=== PATIENT | female | born 1940 | race Caucasian/White ===

== ENCOUNTER 2017-08-19 11:28 | Inpatient (IN) | payer MEDICARE, OTHER ==
[~2017-08-19] VITALS: Ht 157.5 cm; Wt 58.3 kg
[2017-08-19] MEDS ORDERED: ALBUTEROL SULFATE 5 MG/ML 20 ML NEB SOLN [BULK] NEB ONE (11:45)
[2017-08-19] MEDS ORDERED: IPRATROPIUM BROMIDE 0.5 MG/2.5 ML NEB SOLUTION NEB ONE (11:45)
[2017-08-19] MEDS ORDERED: 0.9% SODIUM CHLORIDE 15 ML NEB SOLUTION NEB ONE (11:49)
[2017-08-19] MEDS ORDERED: IPRA3AMP4 IH (11:55)
[2017-08-19] MEDS ORDERED: TRAM50TA4 PO (11:55)
[2017-08-19] MEDS ORDERED: PANT40TA25 PO (11:55)
[2017-08-19] MEDS ORDERED: BUME1TAB17 PO (11:55)
[2017-08-19] MEDS ORDERED: ADV250 IH (11:55)
[2017-08-19] MEDS ORDERED: SILD20TA PO (11:55)
[2017-08-19] MEDS ORDERED: DONE10TA8 PO (11:55)
[2017-08-19] MEDS ORDERED: SULF1TAB41 PO (11:55)
[2017-08-19] MEDS ORDERED: DILT300C33 PO (11:55)
[2017-08-19] MEDS ORDERED: ATOR20TA86 PO (11:55)
[2017-08-19] MEDS ORDERED: ALBU8.5H8 IH (11:55)
[2017-08-19] MEDS ORDERED: APIX5TAB PO (11:55)
[2017-08-19] MEDS ORDERED: MethylPREDNISolone SOD SUCC 125 MG/2 ML VIAL IVP ONE (12:00)
[2017-08-19 12:43] LABS: BASOPHILS % (AUTO) 0.3 % (0.0-2.0); EOSINOPHILS % (AUTO) 1.9 % (1.0-6.0); HEMATOCRIT 30.3 % (36-46); HEMOGLOBIN 10.3 g/dL (12.0-16.0); LYMPHOCYTES # (AUTO) 1.1 K/uL (1.0-4.8); LYMPHOCYTES % (AUTO) 15.4 % (22.0-44.0); MEAN CORPUSCULAR HEMOGLOBIN 30.8 pg (26.0-34.0); MEAN CORPUSCULAR VOLUME 91 fL (80-100); MONOCYTES # (AUTO) 0.8 K/uL (0.1-1.0); MONOCYTES % (AUTO) 12.3 % (2.0-9.0); NEUTROPHILS # (AUTO) 4.8 K/uL (1.8-7.7); NEUTROPHILS % (AUTO) 70.1 % (40.0-70.0); PLATELET COUNT (AUTO) 178 K/uL (150-450); RED BLOOD CELL COUNT(AUTO) 3.34 MIL/uL (4.00-5.20); RED CELL DISTRIBUTION WIDTH 16.8 % (11.5-14.5)
[2017-08-19] MEDS ORDERED: PIPERACILLIN/TAZO 3.375 GM/D5W 50 ML IV ONE (12:45)
[2017-08-19] MEDS ORDERED: LEVOFLOXACIN 500 MG/D5% WATER 100 ML IV ONE (12:45)
[2017-08-19 12:54] LABS: ANION GAP 9 mmol/L (8-16); CALCIUM, TOTAL 9.5 mg/dL (8.8-10.5); CARBON DIOXIDE 23 mmol/L (22-29); CHLORIDE 100 mmol/L (98-107); CREATININE 1.31 mg/dL (0.60-1.30); GLOMERULAR FILTR. RATE CALC 40 mL/min (>60); GLUCOSE,RANDOM 116 mg/dL (70-110); POTASSIUM 4.7 mmol/L (3.5-5.1); SODIUM SERUM 132 mmol/L (136-145); UREA NITROGEN, BLOOD 25 mg/dL (7-18)
[2017-08-19 13:05] LABS: B-TYPE NATRIURETIC PEPTIDE 798 pg/mL (0-100)
[2017-08-19 13:19] LABS: ALANINE AMINOTRANSFERASE 15 U/L (12-78); ALBUMIN 3.2 g/dL (3.4-5.0); ALKALINE PHOSPHATASE 93 U/L (46-116); ASPARTATE AMINOTRANSFERASE 32 U/L (15-37); BILIRUBIN,TOTAL 0.8 mg/dL (0.1-1.0); CREATINE KINASE MB 1.9 ng/mL (0-5); CREATINE KINASE, TOTAL 78 U/L (26-192); TOTAL PROTEIN, SERUM 7.3 g/dL (6.4-8.2)
[2017-08-19] MEDS ORDERED: FUROSEMIDE 40 MG/4 ML VIAL IVP ONE (13:30)
[2017-08-19] MEDS ORDERED: ONDANSETRON HCL 4 MG/2 ML VIAL IVP PRN ×2 (13:45→15:45)
[2017-08-19] MEDS ORDERED: ACETAMINOPHEN 325 MG TABLET PO PRN (13:45)
[2017-08-19] MEDS ORDERED: ALBUTEROL SULFATE 2.5 MG/0.5 ML NEB SOLUTION NEB SCH (15:00)
[2017-08-19] MEDS ORDERED: IPRATROPIUM BROMIDE 0.5 MG/2.5 ML NEB SOLUTION NEB SCH (15:00)
[2017-08-19 15:17] VITALS: BP 109/57
[2017-08-19] MEDS ORDERED: IPRATROPIUM BROMIDE 0.5 MG/2.5 ML NEB SOLUTION NEB PRN (15:45)
[2017-08-19] MEDS ORDERED: ZOLPIDEM TARTRATE 5 MG TABLET PO PRN (15:45)
[2017-08-19] MEDS ORDERED: BUMETANIDE 0.25 MG/ML 4 ML VIAL IVP ONE (15:45)
[2017-08-19] MEDS ORDERED: BISACODYL 10 MG RECTAL RECTAL SUPPOSITORY PR PRN (15:45)
[2017-08-19] MEDS ORDERED: TraMADol HCL 50 MG TABLET PO PRN (15:45)
[2017-08-19] MEDS ORDERED: ALBUTEROL SULFATE 2.5 MG/0.5 ML NEB SOLUTION NEB PRN (15:45)
[2017-08-19] MEDS ORDERED: MORPHINE SULFATE 4 MG/ML SYRINGE IVP PRN (15:45)
[2017-08-19] MEDS ORDERED: OxyCODONE HCL/ACETAMINOPHEN 5-325 MG TABLET PO PRN (15:45)
[2017-08-19] MEDS ORDERED: SILDENAFIL CITRATE 20 MG TABLET PO SCH (16:00)
[2017-08-19] MEDS ORDERED: HEPARIN SODIUM,PORCINE 5,000 UNITS/ML VIAL SQ SCH (16:00)
[2017-08-19] MEDS: MethylPREDNISolone SOD SUCC 125 MG/2 ML VIAL IVP SCH (17:52)
[2017-08-19] MEDS: ACETAMINOPHEN 325 MG TABLET PO PRN (17:55)
[2017-08-19] MEDS: ALBUTEROL SULFATE 2.5 MG/0.5 ML NEB SOLUTION NEB SCH ×2 (19:18→23:10)
[2017-08-19] MEDS: IPRATROPIUM BROMIDE 0.5 MG/2.5 ML NEB SOLUTION NEB SCH ×2 (19:19→23:10)
[2017-08-19 19:30] VITALS: BP 117/66
[2017-08-19] MEDS: DOCUSATE SODIUM 100 MG CAPSULE PO SCH (19:53)
[2017-08-19] MEDS: APIXABAN 5 MG TABLET PO SCH (19:56)
[2017-08-19] MEDS: BUMETANIDE 0.25 MG/ML 4 ML VIAL IVP SCH (19:56)
[2017-08-20] VITALS (7 sets, daily range): BP systolic 106–127; BP diastolic 52–64
[2017-08-20] MEDS: MethylPREDNISolone SOD SUCC 125 MG/2 ML VIAL IVP SCH ×5 (00:39→23:41)
[2017-08-20] MEDS: ACETAMINOPHEN 325 MG TABLET PO PRN ×3 (00:42→23:41)
[2017-08-20] MEDS: IPRATROPIUM BROMIDE 0.5 MG/2.5 ML NEB SOLUTION NEB SCH ×6 (03:12→22:59)
[2017-08-20] MEDS: ALBUTEROL SULFATE 2.5 MG/0.5 ML NEB SOLUTION NEB SCH ×6 (03:12→22:58)
[2017-08-20] MEDS ORDERED: MISC MED-CONVERTED FROM AMBULATORY (Ipratropium/Albuterol Sulfate (Duoneb 2.5-0.5 Mg/3 Ml IH SCH (09:00)
[2017-08-20] MEDS: BUMETANIDE 0.25 MG/ML 4 ML VIAL IVP SCH ×2 (09:05→20:27)
[2017-08-20] MEDS: DOCUSATE SODIUM 100 MG CAPSULE PO SCH ×2 (09:07→20:27)
[2017-08-20] MEDS: PANTOPRAZOLE SODIUM 40 MG DR TABLET PO SCH (09:07)
[2017-08-20] MEDS: DILTIAZEM HCL CD 180 MG ER CAPSULE PO SCH (09:07)
[2017-08-20] MEDS: DONEPEZIL HCL 10 MG TABLET PO SCH (09:07)
[2017-08-20] MEDS: APIXABAN 5 MG TABLET PO SCH ×2 (09:07→20:26)
[2017-08-20] MEDS: ATORVASTATIN CALCIUM 20 MG TABLET PO SCH (09:07)
[2017-08-20] MEDS: SILDENAFIL CITRATE 20 MG TABLET PO SCH ×3 (09:22→20:26)
[2017-08-20] MEDS: MAGNESIUM HYDROXIDE SUSPENSION 30 ML UDCUP PO PRN (14:52)
[2017-08-21] MEDS: ALBUTEROL SULFATE 2.5 MG/0.5 ML NEB SOLUTION NEB SCH ×6 (02:39→22:31)
[2017-08-21] MEDS: IPRATROPIUM BROMIDE 0.5 MG/2.5 ML NEB SOLUTION NEB SCH ×6 (02:39→22:31)
[2017-08-21 05:13] VITALS: BP 96/53
[2017-08-21] MEDS: MethylPREDNISolone SOD SUCC 125 MG/2 ML VIAL IVP SCH ×2 (06:11→17:18)
[2017-08-21 08:32] VITALS: BP 112/61
[2017-08-21] MEDS: DOCUSATE SODIUM 100 MG CAPSULE PO SCH ×2 (09:00→20:54)
[2017-08-21] MEDS: SILDENAFIL CITRATE 20 MG TABLET PO SCH ×3 (09:34→20:55)
[2017-08-21] MEDS: DILTIAZEM HCL CD 180 MG ER CAPSULE PO SCH (09:34)
[2017-08-21] MEDS: MAGNESIUM HYDROXIDE SUSPENSION 30 ML UDCUP PO PRN (09:35)
[2017-08-21] MEDS: BUMETANIDE 0.25 MG/ML 4 ML VIAL IVP SCH ×2 (09:35→20:55)
[2017-08-21] MEDS: ATORVASTATIN CALCIUM 20 MG TABLET PO SCH (09:35)
[2017-08-21] MEDS: APIXABAN 5 MG TABLET PO SCH ×2 (09:35→20:55)
[2017-08-21] MEDS: DONEPEZIL HCL 10 MG TABLET PO SCH (09:35)
[2017-08-21] MEDS: PANTOPRAZOLE SODIUM 40 MG DR TABLET PO SCH (09:35)
[2017-08-21 12:24] VITALS: BP 99/57
[2017-08-21] MEDS ORDERED: DILT180C63 PO (12:53)
[2017-08-21] MEDS ORDERED: SULF1TAB42 PO (12:53)
[2017-08-21 13:22] LABS: BASOPHILS % (AUTO) 0.1 % (0.0-2.0); EOSINOPHILS % (AUTO) 0 % (1.0-6.0); HEMATOCRIT 29.6 % (36-46); HEMOGLOBIN 9.9 g/dL (12.0-16.0); LYMPHOCYTES # (AUTO) 0.6 K/uL (1.0-4.8); LYMPHOCYTES % (AUTO) 5.9 % (22.0-44.0); MEAN CORPUSCULAR HEMOGLOBIN 30.5 pg (26.0-34.0); MEAN CORPUSCULAR HGB CONC 33.4 G/dL (31.0-37.0); MEAN CORPUSCULAR VOLUME 91 fL (80-100); MONOCYTES # (AUTO) 0.3 K/uL (0.1-1.0); NEUTROPHILS # (AUTO) 8.9 K/uL (1.8-7.7); PLATELET COUNT (AUTO) 229 K/uL (150-450); RED BLOOD CELL COUNT(AUTO) 3.24 MIL/uL (4.00-5.20); RED CELL DISTRIBUTION WIDTH 16.9 % (11.5-14.5)
[2017-08-21 13:28] LABS: CALCIUM, TOTAL 9.5 mg/dL (8.8-10.5); CREATININE 2.43 mg/dL (0.60-1.30); POTASSIUM 5.1 mmol/L (3.5-5.1)
[2017-08-21 13:34] LABS: ALBUMIN 3.4 g/dL (3.4-5.0); BILIRUBIN,TOTAL 0.7 mg/dL (0.1-1.0); TOTAL PROTEIN, SERUM 7.4 g/dL (6.4-8.2)
[2017-08-21 13:35] LABS: PLATELET MORPHOLOGY COMMENT GIANT PLTS PRESENT
[2017-08-21 15:49] VITALS: BP 104/52
[2017-08-21 20:13] VITALS: BP 107/60
[2017-08-21] MEDS: ACETAMINOPHEN 325 MG TABLET PO PRN (22:52)
[2017-08-21 23:25] VITALS: BP 105/58
[2017-08-22] MEDS: MethylPREDNISolone SOD SUCC 125 MG/2 ML VIAL IVP SCH ×4 (00:11→17:26)
[2017-08-22] MEDS: ALBUTEROL SULFATE 2.5 MG/0.5 ML NEB SOLUTION NEB SCH ×4 (02:24→14:41)
[2017-08-22] MEDS: IPRATROPIUM BROMIDE 0.5 MG/2.5 ML NEB SOLUTION NEB SCH ×4 (02:24→14:41)
[2017-08-22 04:38] VITALS: BP 97/51
[2017-08-22 07:05] VITALS: BP 95/54
[2017-08-22] MEDS: DOCUSATE SODIUM 100 MG CAPSULE PO SCH (09:00)
[2017-08-22] MEDS: PANTOPRAZOLE SODIUM 40 MG DR TABLET PO SCH (09:21)
[2017-08-22] MEDS: DILTIAZEM HCL CD 180 MG ER CAPSULE PO SCH (09:23)
[2017-08-22] MEDS: APIXABAN 5 MG TABLET PO SCH (09:24)
[2017-08-22] MEDS: SILDENAFIL CITRATE 20 MG TABLET PO SCH ×2 (09:24→17:25)
[2017-08-22] MEDS: DONEPEZIL HCL 10 MG TABLET PO SCH (09:24)
[2017-08-22] MEDS: ATORVASTATIN CALCIUM 20 MG TABLET PO SCH (09:24)
[2017-08-22] MEDS: BUMETANIDE 0.25 MG/ML 4 ML VIAL IVP SCH (09:25)
[2017-08-22 11:32] VITALS: BP 107/59
[2017-08-22 16:23] VITALS: BP 100/54
[2017-08-22] MEDS: ACETAMINOPHEN 325 MG TABLET PO PRN (17:25)
[2017-08-22 17:26] LABS: BASOPHILS % (AUTO) 0.1 % (0.0-2.0); EOSINOPHILS % (AUTO) 0 % (1.0-6.0); HEMATOCRIT 30.9 % (36-46); HEMOGLOBIN 10.2 g/dL (12.0-16.0); LYMPHOCYTES # (AUTO) 0.2 K/uL (1.0-4.8); LYMPHOCYTES % (AUTO) 2.4 % (22.0-44.0); MEAN CORPUSCULAR HGB CONC 33.1 G/dL (31.0-37.0); MEAN CORPUSCULAR VOLUME 91 fL (80-100); MONOCYTES # (AUTO) 0.2 K/uL (0.1-1.0); MONOCYTES % (AUTO) 2.8 % (2.0-9.0); NEUTROPHILS # (AUTO) 7.1 K/uL (1.8-7.7); NEUTROPHILS % (AUTO) 94.7 % (40.0-70.0); PLATELET COUNT (AUTO) 241 K/uL (150-450); RED BLOOD CELL COUNT(AUTO) 3.41 MIL/uL (4.00-5.20); RED CELL DISTRIBUTION WIDTH 16.8 % (11.5-14.5)
[2017-08-22 17:35] LABS: CALCIUM, TOTAL 9.4 mg/dL (8.8-10.5); CREATININE 2.43 mg/dL (0.60-1.30)
[2017-08-22 17:41] LABS: ALBUMIN 3.5 g/dL (3.4-5.0); BILIRUBIN,TOTAL 0.8 mg/dL (0.1-1.0); TOTAL PROTEIN, SERUM 7.5 g/dL (6.4-8.2)
[2017-08-22] MEDS ORDERED: PredniSONE 20 MG TABLET PO ONE (17:45)
== END 2017-08-22 18:45 | DRG 189 ==
LOC: EMS 11:30 → 5N 13:41
PROVIDERS: ADMIT Hospitalist; ATTEND Hospitalist
DX: J96.20 Acute and chronic respiratory failure, unspecified whether with hypoxia or hypercapnia (principal); J18.9 Pneumonia, unspecified organism; J45.901 Unspecified asthma with (acute) exacerbation; J44.1 Chronic obstructive pulmonary disease with (acute) exacerbation; I13.0 Hypertensive heart and chronic kidney disease with heart failure and stage 1 through stage 4 chronic kidney disease, or unspecified chronic kidney disease; J44.0 Chronic obstructive pulmonary disease with (acute) lower respiratory infection; I48.91 Unspecified atrial fibrillation; I50.9 Heart failure, unspecified; I25.10 Atherosclerotic heart disease of native coronary artery without angina pectoris; D63.1 Anemia in chronic kidney disease; E78.5 Hyperlipidemia, unspecified; F03.90 Unspecified dementia, unspecified severity, without behavioral disturbance, psychotic disturbance, mood disturbance, and anxiety; I27.20 Pulmonary hypertension, unspecified; N18.3 Chronic kidney disease, stage 3 (moderate); Z91.041 Radiographic dye allergy status; Z79.01 Long term (current) use of anticoagulants; Z79.899 Other long term (current) drug therapy; Z86.73 Personal history of transient ischemic attack (TIA), and cerebral infarction without residual deficits
CPT/HCPCS: 87040; 87081; 93005; 94640; 94644; 96374; 99291; J1940; J1956; J2543; J2930; J3490

== ENCOUNTER 2018-06-20 10:31 | Inpatient (IN) | payer MEDICARE, OTHER ==
[~2018-06-20] VITALS: Ht 165.1 cm; Wt 57.6 kg
[~2018-06-20 10:31] MED LIST: ADV250 IH; ALBU8.5H8 IH; APIX5TAB PO; ATOR20TA86 PO; BUME1TAB17 PO; DILT180C63 PO; DONE10TA8 PO; IPRA3AMP24 IH; PANT40TA25 PO; SILD20TA PO; SULF1TAB42 PO; TRAM50TA4 PO
[2018-06-20] MEDS ORDERED: PHENYLEPHRINE 200 MG/D5%-WATER 250 ML IV PRN ×2 (10:37→12:26)
[2018-06-20] MEDS ORDERED: SODIUM CHLORIDE 0.9% 1,900 ML IV ONE (10:45)
[2018-06-20] MEDS ORDERED: 0.9% SODIUM CHLORIDE 10 ML SYRINGE IVP PRN (10:45)
[2018-06-20 11:06] LABS: HEMATOCRIT 24.6 % (36-46); HEMOGLOBIN 7.2 g/dL (12.0-16.0); MEAN CORPUSCULAR HEMOGLOBIN 20.8 pg (26.0-34.0); MEAN CORPUSCULAR VOLUME 72 fL (80-100); RED BLOOD CELL COUNT(AUTO) 3.43 MIL/uL (4.00-5.20); RED CELL DISTRIBUTION WIDTH 21.2 % (11.5-14.5)
[2018-06-20 11:10] LABS: INR 2.6 (0.9-1.1); PROTHROMBIN TIME 26.1 SEC (9.4-11.6)
[2018-06-20 11:11] LABS: ANION GAP 18 mmol/L (8-16); CALCIUM, TOTAL 7.6 mg/dL (8.8-10.5); CARBON DIOXIDE 17 mmol/L (22-29); CHLORIDE 104 mmol/L (98-107); GLOMERULAR FILTR. RATE CALC 19 mL/min (>60); GLUCOSE,RANDOM 167 mg/dL (70-110); POTASSIUM 5.1 mmol/L (3.5-5.1); SODIUM SERUM 139 mmol/L (136-145); UREA NITROGEN, BLOOD 47 mg/dL (7-18)
[2018-06-20 11:20] LABS: APPEARANCE,URINE CLOUDY (CLEAR); GLUCOSE, URINE (UA) NEGATIVE (NEGATIVE); KETONES,URINE NEGATIVE (NEGATIVE); LEUKOCYTE ESTERASE ,URINE MODERATE (NEGATIVE); NITRATE,URINE POSITIVE (NEGATIVE); OCCULT BLOOD,URINE SMALL (NEGATIVE); PH,URINE 7.5 (5.0-8.0); PROTEIN,URINE POS 1+ (NEGATIVE)
[2018-06-20 11:21] LABS: BILIRUBIN,URINE PRELIM. POSITIVE (NEGATIVE)
[2018-06-20 11:24] LABS: LACTIC ACID 9.4 mmol/L (0.4-2.0)
[2018-06-20 11:26] LABS: ALANINE AMINOTRANSFERASE 27 U/L (12-78); ALBUMIN 1.8 g/dL (3.4-5.0); ALKALINE PHOSPHATASE 55 U/L (46-116); ASPARTATE AMINOTRANSFERASE 38 U/L (15-37); B-TYPE NATRIURETIC PEPTIDE 1090 pg/mL (0-100); BILIRUBIN,TOTAL 2.7 mg/dL (0.1-1.0); TOTAL PROTEIN, SERUM 4.5 g/dL (6.4-8.2)
[2018-06-20] MEDS ORDERED: ROCURONIUM BROMIDE 10 MG/ML 5 ML VIAL IVP ONE (11:30)
[2018-06-20] MEDS ORDERED: LORazepam 2 MG/ML VIAL IVP ONE (11:30)
[2018-06-20 11:32] LABS: BACTERIA,URINE Moderate /HPF (None Seen)
[2018-06-20 11:38] LABS: BAND NEUTROPHILS % (MANUAL) 28 % (0-5); CORRECTED WHITE BLOOD COUNT 2.7 K/uL (4.5-11.0); LYMPHOCYTES % (MANUAL) 14 % (22-44); MONOCYTES % (MANUAL) 6 % (2-9); SEGMENTED NEUTROPHILS % 52 % (40-70)
[2018-06-20 12:00] LABS: ABG A-A DIFF O2 483.4 mmHg (10-20.0); ABG BASE EXCESS -14.8 mmol/L (-2.0-3.0); ABG CARBOXYHEMOGLOBIN 0.6 % (0.0-1.5); ABG HCO3 13.7 mmol/L (22.0-26.0); ABG METHEMOGLOBIN 1.1 % (0.0-1.5); ABG OXYGEN CONTENT 12.5 mL/dL (15.0-23.0); ABG OXYHEMOGLOBIN 97.3 % (94.0-100.0); ABG PCO2 32 mmHg (35-45); ABG PH 7.222 (7.35-7.450); ABG TOTAL HEMOGLOBIN 8.8 G/dL (12.0-18.0); SOURCE, BLOOD GAS ARTERIAL; TEMPERATURE, FAHRENHEIT, BG 98.3 FAHREN (96.0-98.6)
[2018-06-20 12:01] LABS: O2 DEVICE,BLOOD GAS VENTILATOR (ROOM AIR); PEEP,BG 5 cm H2O; SITE, BLOOD GAS RT RADIAL; VT, ABG 450 ml
[2018-06-20 12:17] LABS: INFLUENZA TYPE A NEGATIVE FOR TYPE A (NEGATIVE); INFLUENZA TYPE B NEGATIVE FOR TYPE B (NEGATIVE)
[2018-06-20 12:19] LABS: PATHOLOGY REVIEW, DIFF YES
[2018-06-20 12:21] LABS: PLATELET MORPHOLOGY COMMENT LARGE PLTS PRESENT
[2018-06-20 12:25] LABS: PLATELET COUNT (AUTO) 76 K/uL (150-450)
[2018-06-20] MEDS ORDERED: DOPamine HCL 400 MG/D5%-WATER 250 ML IV PRN (12:26)
[2018-06-20 12:29] LABS: GLUCOSE,POINT OF CARE 82 MG/DL (70-110)
[2018-06-20] MEDS ORDERED: ZOLPIDEM TARTRATE 5 MG TABLET PO PRN (12:30)
[2018-06-20] MEDS ORDERED: PIPERACILLIN/TAZO 3.375 GM/D5W 50 ML IV ONE (12:30)
[2018-06-20] MEDS ORDERED: ONDANSETRON HCL 4 MG/2 ML VIAL IVP PRN (12:30)
[2018-06-20] MEDS ORDERED: BISACODYL 10 MG RECTAL RECTAL SUPPOSITORY PR PRN (12:30)
[2018-06-20] MEDS ORDERED: MAGNESIUM HYDROXIDE SUSPENSION 30 ML UDCUP PO PRN (12:30)
[2018-06-20] MEDS ORDERED: ALBUTEROL SULFATE 2.5 MG/0.5 ML NEB SOLUTION NEB PRN (12:30)
[2018-06-20] MEDS ORDERED: ACETAMINOPHEN 325 MG TABLET PO PRN (12:30)
[2018-06-20] MEDS ORDERED: HYDROCODONE/ACETAMINOPHEN 5-325 MG TABLET PO PRN (12:30)
[2018-06-20] MEDS ORDERED: MORPHINE SULFATE 2 MG/ML SYRINGE IVP PRN (12:30)
[2018-06-20] MEDS ORDERED: IPRATROPIUM BROMIDE 0.5 MG/2.5 ML NEB SOLUTION NEB PRN (12:30)
[2018-06-20] MEDS ORDERED: NOREPINEPHRINE 4 MG/D5%-WATER 250 ML IV PRN (12:30)
[2018-06-20] MEDS: IPRATROPIUM BROMIDE 0.5 MG/2.5 ML NEB SOLUTION NEB SCH ×2 (14:00→20:44)
[2018-06-20] MEDS: ALBUTEROL SULFATE 2.5 MG/0.5 ML NEB SOLUTION NEB SCH ×2 (14:00→20:44)
[2018-06-20 14:05] LABS: GLUCOSE,POINT OF CARE 67 MG/DL (70-110)
[2018-06-20] MEDS: SODIUM BICARBONATE 75 MEQ in DEXTROSE 5%-0.45% SODIUM CHL 1,000 ML IV SCH (14:27)
[2018-06-20] MEDS ORDERED: SODIUM CHLORIDE 77 MEQ in DEXTROSE 10%-WATER 1,000 ML IV SCH (14:30)
[2018-06-20] MEDS ORDERED: LEVALBUTEROL HCL 0.63 MG/3 ML NEB SOLUTION NEB ONE (14:30)
[2018-06-20] MEDS: VASOPRESSIN 40 UNITS in DEXTROSE 5%-WATER 98 ML IV PRN (15:10)
[2018-06-20] MEDS: BENZONATATE 100 MG CAPSULE PO SCH ×2 (16:00→21:00)
[2018-06-20] MEDS: NOREPINEPHRINE 4 MG/D5%-WATER 250 ML IV PRN ×2 (18:00→23:28)
[2018-06-20] MEDS: MethylPREDNISolone SOD SUCC 125 MG/2 ML VIAL IVP SCH (18:00)
[2018-06-20] MEDS ORDERED: SODIUM CHLORIDE 0.9% 500 ML IV ONE (18:13)
[2018-06-20 18:45] VITALS: BP 80/45
[2018-06-20 20:00] VITALS: BP 55/35
[2018-06-20 20:04] LABS: GLUCOSE,POINT OF CARE 87 MG/DL (70-110)
[2018-06-20] MEDS: GuaiFENesin SR 600 MG ER TABLET PO SCH (21:00)
[2018-06-20] MEDS: DOCUSATE SODIUM 100 MG CAPSULE PO SCH (21:00)
[2018-06-20] MEDS: APIXABAN 5 MG TABLET PO SCH (21:00)
[2018-06-20] MEDS: PIPERACILLIN SODIUM/TAZOBACTAM 2.25 GM in DEXTROSE 5%-WATER 50 ML IV SCH (22:58)
[2018-06-21] VITALS: BP 72/43
[2018-06-21] MEDS: MethylPREDNISolone SOD SUCC 125 MG/2 ML VIAL IVP SCH ×3 (00:10→12:00)
[2018-06-21] MEDS: IPRATROPIUM BROMIDE 0.5 MG/2.5 ML NEB SOLUTION NEB SCH ×2 (02:02→08:02)
[2018-06-21] MEDS: ALBUTEROL SULFATE 2.5 MG/0.5 ML NEB SOLUTION NEB SCH ×2 (02:02→08:02)
[2018-06-21] MEDS: NOREPINEPHRINE BITARTRATE 8 MG in DEXTROSE 5%-WATER 242 ML IV PRN ×2 (03:02→08:53)
[2018-06-21 04:00] VITALS: BP 77/47
[2018-06-21] MEDS: SODIUM BICARBONATE 75 MEQ in DEXTROSE 5%-0.45% SODIUM CHL 1,000 ML IV SCH (04:30)
[2018-06-21] MEDS: VASOPRESSIN 40 UNITS in DEXTROSE 5%-WATER 98 ML IV PRN (04:37)
[2018-06-21] MEDS: PIPERACILLIN SODIUM/TAZOBACTAM 2.25 GM in DEXTROSE 5%-WATER 50 ML IV SCH (05:42)
[2018-06-21 08:00] VITALS: BP 83/45
[2018-06-21] MEDS ORDERED: PANTOPRAZOLE SODIUM 40 MG DR TABLET PO SCH (09:00)
[2018-06-21] MEDS: BENZONATATE 100 MG CAPSULE PO SCH (09:00)
[2018-06-21] MEDS: DOCUSATE SODIUM 100 MG CAPSULE PO SCH (09:00)
[2018-06-21] MEDS: GuaiFENesin SR 600 MG ER TABLET PO SCH (09:00)
[2018-06-21] MEDS: APIXABAN 5 MG TABLET PO SCH (09:00)
[2018-06-21 12:00] VITALS: BP 83/45
[2018-06-21] MEDS ORDERED: MORPHINE SULFATE 100 MG/NS/PF 100 ML IV PRN (12:09)
== END 2018-06-21 16:36 | disposition expired | DRG 871 ==
LOC: EMS 10:31 → ICU 13:41
PROVIDERS: ADMIT Internal Medicine; ATTEND Internal Medicine
PROC: 5A1935Z Respiratory Ventilation, Less than 24 Consecutive Hours (ICD-10-PCS; principal; 2018-06-20)
PROC: 0BH17EZ Insertion of Endotracheal Airway into Trachea, Via Natural or Artificial Opening (ICD-10-PCS; 2018-06-20)
DX: A41.9 Sepsis, unspecified organism (principal); J96.00 Acute respiratory failure, unspecified whether with hypoxia or hypercapnia; I50.31 Acute diastolic (congestive) heart failure; J69.0 Pneumonitis due to inhalation of food and vomit; N39.0 Urinary tract infection, site not specified; N17.9 Acute kidney failure, unspecified; J44.1 Chronic obstructive pulmonary disease with (acute) exacerbation; E44.0 Moderate protein-calorie malnutrition; E87.2 Acidosis; I13.0 Hypertensive heart and chronic kidney disease with heart failure and stage 1 through stage 4 chronic kidney disease, or unspecified chronic kidney disease; E78.5 Hyperlipidemia, unspecified; G47.33 Obstructive sleep apnea (adult) (pediatric); N18.9 Chronic kidney disease, unspecified; I48.2 Chronic atrial fibrillation; D64.9 Anemia, unspecified; I25.10 Atherosclerotic heart disease of native coronary artery without angina pectoris; Z91.041 Radiographic dye allergy status; Z90.49 Acquired absence of other specified parts of digestive tract; Z87.440 Personal history of urinary (tract) infections; Z86.73 Personal history of transient ischemic attack (TIA), and cerebral infarction without residual deficits; Z68.21 Body mass index [BMI] 21.0-21.9, adult
CPT/HCPCS: 31500; 36600; 70450; 74176; 82270; 82805; 83605; 87040; 87081; 87086; 87804; 93005; 94002; 94003; 94640; 96365; 99291; G0378; J2060; J2270; J2370; J2543; J2930; J3490; J7040; J7060; J7131